=== PATIENT | male | born 1965 | race Caucasian/White ===

== ENCOUNTER 2018-06-13 06:23 | Emergency (ER) | payer BC ==
[2018-06-13] MEDS ORDERED: Labetalol 100 MG/20 ML MDV IVPUSH ONE ×2 (06:36→07:01)
[2018-06-13] MEDS ORDERED: Sodium Chloride 0.9% 10 ML Syringe FLUSH PRN (06:36)
[2018-06-13] MEDS ORDERED: Lisinopril 10 MG Tab PO ONE (07:50)
--- NOTE | 2018-06-13 07:55 | EDM.PDOC ---
ED HPI GENERAL MEDICAL PROBLEM - General Chief Complaint: ENT Problem Stated Complaint: BLOODY NOSE Time Seen by Provider: 06/13/18 06:35 Source of Information: Reports: Patient, RN Notes Reviewed - History of Present Illness INITIAL COMMENTS - FREE TEXT/NARRATIVE: 53 year old male with nose bleed off and on that started yesterday. Started up again this AM, Hx of "borderline Htn", does not take meds for that. No [place], sinsus trouble or other unusual sx. Not on any blood thinners. - Related Data Allergies Allergy/AdvReac Type Severity Reaction Status Date / Time No Known Allergies Allergy Verified 06/13/18 06:28 Home Meds: Home Meds Lisinopril 10 mg PO DAILY #30 tablet 06/13/18 [Rx] Past Medical History - Past Health History Medical/Surgical History: Denies Medical/Surgical History Musculoskeletal History: Reports: Fracture Social & Family History - Tobacco Use Smoking Status *Q: Current Every Day Smoker Years of Tobacco use: 33 Packs/Tins Daily: 1 - Alcohol Use Days Per Week of Alcohol Use: 7 Number of Drinks Per Day: 2 Total Drinks Per Week: 14 - Recreational Drug Use Recreational Drug Use: No ED ROS ENT - Review of Systems Review Of Systems: See Below Constitutional: Denies: Fever, Chills HEENT: Reports: Nosebleed. Denies: Nose Pain, Rhinitis, Sinus Problem, Throat Pain Respiratory: Denies: Shortness of Breath Cardiovascular: Denies: Chest Pain GI/Abdominal: Denies: Nausea, Vomiting Musculoskeletal: Reports: No Symptoms Skin: Reports: No Symptoms Neurological: Reports: No Symptoms ED EXAM, ENT - Physical Exam Exam: See Below General Appearance: Alert, Mild Distress Nose: Dried Blood (L nares, no active bleeding at this time) Mouth/Throat: Normal Inspection (no blood) Head: Atraumatic. No: Facial Ecchymosis, Facial Swelling, Facial Tenderness Neck: Supple, Full Range of Motion Respiratory/Chest: No Respiratory Distress, Lungs Clear, Normal Breath Sounds Cardiovascular: Regular Rate, Rhythm Extremities: Normal Inspection, Normal Range of Motion, No Pedal Edema Neurological: Alert, Oriented, No Motor/Sensory Deficits Skin: Warm, Dry, Normal Color ED ENT PROCEDURES - Epistaxis Procedure Indication: Epistaxis Recent anticoagulants/antiplatlets: No Uncontrolled HTN: Yes Recent septal/nasal surgery: No Site of bleeding: Left Nare, Anterior Topical Meds: Topical Cocaine Chemical cautery: Silver Nitrate Topical Course - Vital Signs Last Recorded V/S: Last Vital Signs Temp 96.8 F 06/13/18 06:28 Pulse 82 06/13/18 08:01 Resp 18 06/13/18 08:01 BP 168/115 H 06/13/18 08:01 Pulse Ox 92 L 06/13/18 08:01 - Orders/Labs/Meds Labs: Laboratory Tests 06/13/18 06/13/18 Range/Units 06:40 06:40 WBC 8.05 (4.23-9.07) K/mm3 RBC 5.90 (4.63-6.08) M/mm3 Hgb 16.5 (13.7-17.5) gm/L Hct 50.3 (40.1-51.0) % MCV 85.3 (79.0-92.2) fl MCH 28.0 (25.7-32.2) pg MCHC 32.8 (32.2-35.5) g/dl RDW Std Deviation 48.4 H (35.1-43.9) fL Plt Count 283 (163-337) K/mm3 MPV 10.0 (9.4-12.3) fl Neut % (Auto) 79.7 H (34.0-67.9) % Lymph % (Auto) 9.6 L (21.8-53.1) % [facility] % (Auto) 7.2 (5.3-12.2) % Eos % (Auto) 2.9 (0.8-7.0) Baso % (Auto) 0.4 (0.1-1.2) % Neut # (Auto) 6.42 H (1.78-5.38) K/mm3 Lymph # (Auto) 0.77 L (1.32-3.57) K/mm3 [facility] # (Auto) 0.58 (0.30-0.82) K/mm3 Eos # (Auto) 0.23 (0.04-0.54) K/mm3 Baso # (Auto) 0.03 (0.01-0.08) K/mm3 Manual Slide Review Normal smear Sodium 141 (136-145) mEq/L Potassium 3.9 (3.5-5.1) mEq/L Chloride 107 (98-107) mEq/L Carbon Dioxide 23 (21-32) mEq/L Anion Gap 14.9 (5-15) BUN 21 H (7-18) mg/dL Creatinine 1.0 (0.7-1.3) mg/dL Est Cr Clr Drug Dosing 90.24 mL/min Estimated GFR (MDRD) > 60 (>60) mL/min BUN/Creatinine Ratio 21.0 H (14-18) Glucose 130 H (74-106) mg/dL Calcium 8.6 (8.5-10.1) mg/dL Total Bilirubin 0.6 (0.2-1.0) mg/dL AST 28 (15-37) U/L ALT 46 (16-63) U/L Alkaline Phosphatase 64 (46-116) U/L Total Protein 7.9 (6.4-8.2) g/dl Albumin 3.7 (3.4-5.0) g/dl Globulin 4.2 gm/dL Albumin/Globulin Ratio 0.9 L (1-2) Meds: Medications Discontinued Medications Generic Name Dose Route Start Last Admin Trade Name Freq PRN Reason Stop Dose Admin Cocaine HCl 4 ml 06/13/18 06:44 06/13/18 07:06 Cocaine Hcl TOP 06/13/18 06:45 4 ml ONETIME ONE Administration Labetalol HCl 20 mg 06/13/18 06:36 06/13/18 06:42 Normodyne IVPUSH 06/13/18 06:37 20 mg ONETIME ONE Administration Protocol Labetalol HCl 20 mg 06/13/18 07:01 06/13/18 07:07 Normodyne IVPUSH 06/13/18 07:02 20 mg ONETIME ONE Administration Protocol Lisinopril 10 mg 06/13/18 07:50 06/13/18 08:01 Prinivil PO 06/13/18 07:51 10 mg ONETIME ONE Administration Sodium Chloride 10 ml 06/13/18 06:36 06/13/18 06:43 Saline Flush FLUSH 10 ml ASDIRECTED PRN Administration Keep Vein Open - Re-Assessments/Exams Free Text/Narrative Re-Assessment/Exam: 06/15/18 07:16 initial BP 206/139. Gave 2 doses of labetalol IV to bring that down. nose cauterized with sliver nitrate, no further bleeding, starting him on lisinopril , discharge instr. as documented. Departure - Departure Time of Disposition: 07:51 Disposition: Home, Self-Care 01 Condition: Fair Clinical Impression: Epistaxis Hypertension Qualifiers: Hypertension type: essential hypertension Qualified Code(s): I10 - Essential ( primary) hypertension - Discharge Information Prescriptions: Lisinopril 10 mg PO DAILY #30 tablet Instructions: Nosebleed, Adult, Hypertension Referrals: PCP,None [Primary Care Provider] - Forms: ED Department Discharge Additional Instructions: Lisinopril 10 mg daily for hypertension, try avoid salty food is best you can, try eat a healthy diet avoiding as much flour and sugar foods as possible, research the Mediterranean diet, that is a diet that includes a lot of fruit, vegetables, nuts, fish that has been shown to reduce risk for heart attack and stroke. Try get some regular exercise at least 3-4 times a week. See one of our medical providers at our [facility] in about 7-10 days for regular complete physical. Call [phone] for appt. try get a blood pressure unit, check your blood pressure twice daily and keep a record, bring that for your appointment. Try not to blow your nose for the next 2 days, Vaseline to the distal nose each side for moisturization twice daily. Pressure if needed for any further bleeding , return to ED as needed.
== END 2018-06-13 08:10 | disposition home or self-care (01) ==
LOC: JD.ED 06:23
DX: R04.0 Epistaxis (principal); I10 Essential (primary) hypertension; F17.210 Nicotine dependence, cigarettes, uncomplicated; Z79.899 Other long term (current) drug therapy
CPT/HCPCS: 30901; 36415; 80053; 85025; 96374; 99283; A9270; J3490

== ENCOUNTER 2018-06-19 07:35 | Emergency (ER) | payer BC ==
--- NOTE | 2018-06-19 07:55 | EDM.PDOC ---
ED HPI GENERAL MEDICAL PROBLEM - General Chief Complaint: ENT Problem Stated Complaint: NOSE BLEED Time Seen by Provider: 06/19/18 07:45 Source of Information: Reports: Patient History Limitations: Reports: No Limitations - History of Present Illness INITIAL COMMENTS - FREE TEXT/NARRATIVE: 53-year-old male presents to the ED with acute onset of a left-sided nasal hemorrhage starting about 0500 hrs. this morning. No nasal trauma. No recent nosebleeds. Been recently diagnosed with significant hypertension and was started on medication last week for blood pressure control I believe lisinopril. BP is quite elevated at the time of exam 200/112. Currently down to 166 116. Blood was running down the back of his throat and swallowed it as well as coming out the right naris. 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 (see below) - Related Data Allergies Allergy/AdvReac Type Severity Reaction Status Date / Time No Known Allergies Allergy Verified 06/19/18 07:47 Home Meds: Home Meds Lisinopril 10 mg PO DAILY #30 tablet 06/13/18 [Rx] Bacitracin/Polymyxin B Sulfate [Polysporin Ointment] 28.3 gm TP ASDIRECTED #1 tube 06/19/18 [Rx] amLODIPine Besylate [Norvasc] 10 mg PO DAILY #30 tablet 06/19/18 [Rx] Past Medical History - Past Health History Medical/Surgical History: Denies Medical/Surgical History Cardiovascular History: Reports: Hypertension (Recently diagnosed with hypertension and started on lisinopril 10 mg once daily last week) Musculoskeletal History: Reports: Fracture Social & Family History - Living Situation & Occupation Living situation: Reports: Single Occupation: Employed ED ROS ENT - Review of Systems Review Of Systems: See Below Constitutional: Denies: Fever, Chills, Malaise, Weakness, Fatigue, Decreased Appetite, Weight Loss HEENT: Reports: Nosebleed (Left nasal hemorrhage this morning.) Respiratory: Reports: No Symptoms Cardiovascular: Reports: Blood Pressure Problem Endocrine: Reports: No Symptoms GI/Abdominal: Reports: No Symptoms, Other (Obese) : Reports: No Symptoms Musculoskeletal: Reports: Back Pain Skin: Reports: No Symptoms Neurological: Reports: No Symptoms Psychiatric: Reports: No Symptoms Hematologic/Lymphatic: Reports: No Symptoms Immunologic: Reports: No Symptoms ED EXAM, ENT - Physical Exam Exam: See Below Exam Limited By: No Limitations General Appearance: Alert, WD/WN, Moderate Distress (Blood pressure is 200/135 initially it did come down to 166/116 fairly shortly after I seen him.) Eye Exam: Bilateral Eye: Normal Inspection Nose: Active Bleeding (His left naris was full of clot and I had him blow his nose. On inspection I could see an arterial bleed actually's shooting blood across the naris from the anterior nasal septum nose clamp was reapplied plan will be to pack the nose with cocaine and Afrin soaked Tubegauz.) Mouth/Throat: Other (Large clot present in the posterior left nasopharynx just behind the soft palate. He was able to cough some of this up.) Head: Atraumatic, Normocephalic Neck: Normal Inspection, Supple, Non-Tender, Full Range of Motion Respiratory/Chest: No Respiratory Distress, Lungs Clear, Normal Breath Sounds, No Accessory Muscle Use, Chest Non-Tender Cardiovascular: Normal Peripheral Pulses, Regular Rate, Rhythm, No Edema, No Murmur, No Rub GI/Abdominal: Normal Bowel Sounds, Soft, Non-Tender, No Organomegaly, No Abnormal Bruit Neurological: Alert, Oriented, CN II-XII Intact, Normal Cognition Psychiatric: Normal Affect, Anxious Skin: Warm, Dry, Intact, Normal Color, No Rash EKG INTERPRETATION Rate (Beats/Min): 96 [place]: Normal Course - Vital Signs Last Recorded V/S: Last Vital Signs Temp 36.3 C 06/19/18 07:45 Pulse 113 H 06/19/18 07:45 Resp 16 06/19/18 07:45 BP 166/116 H 06/19/18 08:04 Pulse Ox 96 06/19/18 07:45 - Orders/Labs/Meds Meds: Medications Discontinued Medications Generic Name Dose Route Start Last Admin Trade Name Freq PRN Reason Stop Dose Admin Amlodipine Besylate 10 mg 06/19/18 07:57 06/19/18 08:04 Norvasc PO 06/19/18 07:58 10 mg ONETIME ONE Administration Cocaine HCl 4 ml 06/19/18 07:57 06/19/18 08:05 Cocaine Hcl TOP 06/19/18 07:58 4 ml ONETIME ONE Administration Oxymetazoline HCl 15 ml 06/19/18 07:58 06/19/18 08:04 Afrin Original 0.05% Nasal [place] SERENE 06/19/18 07:59 15 ml ONETIME ONE Administration - Radiology Interpretation Free Text/Narrative:: 53-year-old male presents to the ED with acute left-sided nasal hemorrhage. Is at 0500 hrs. this morning spontaneously while he was at work. Bleeding from the right naris as well as down his posterior oropharynx. Nasal clamp was brought under control once he got to the ED. Also remove the clamp and had him clear the clot from the left naris I found an active arterial bleed from the mid left anterior nasal septum. This is an aggressive bleed aggravated by his current blood pressure. I will give him Norvasc 10 mg by mouth. I will pack his nose with Afrin and cocaine-soaked Tubegauz. - Re-Assessments/Exams Free Text/Narrative Re-Assessment/Exam: 06/19/18 08:15: Left naris packed with cocaine and Afrin soaked Tubegauze . BP is currently 175 /116. 06/19/18 09:26 left nasal skin tears septum cauterized with silver nitrate. Watched for half an hour and no further bleeding occurred. Patient will be discharged to home. His BP was down to 164/98 at the time of discharge. I'm going to add Norvasc 10 mg once daily to his treatment plan and a prescription was written for 30 tablets. He is to follow-up with his personal care physician in 2 weeks' time for blood pressure review. In the meantime he will pack his nose at bedtime with Polysporin ointment with aid of a Q-tip evident at bedtime for one week and then Wednesdays and Sundays until winter is over. He will return of course to the ED if any further nosebleeds occur. Departure - Departure Time of Disposition: 09:16 Disposition: Home, Self-Care 01 Condition: Fair Clinical Impression: Uncontrolled hypertension, Anterior epistaxis - Discharge Information *PRESCRIPTION DRUG MONITORING PROGRAM REVIEWED*: Not Applicable *COPY OF PRESCRIPTION DRUG MONITORING REPORT IN PATIENT [place]: Not Applicable Prescriptions: amLODIPine Besylate [Norvasc] 10 mg PO DAILY #30 tablet Bacitracin/Polymyxin B Sulfate [Polysporin Ointment] 28.3 gm TP ASDIRECTED #1 tube Instructions: Nosebleed, Adult Referrals: Vladimir Rousseau Jr, MD [Primary Care Provider] - Forms: ED Department Discharge Additional Instructions: Evaluation the emergency room today in regards to sudden onset of an aggressive left-sided nosebleed. When I looked into the nose after the clot was cleared there was a blood vessel that was shooting blood from the left anterior nasal septum. This appears to be aggravated by elevated blood pressure which is not well controlled. You're treated with medication packing in the left nose to bring the blood vessel and bleeding under control. The area was then cauterized using silver nitrate. Blood pressure was controlled with Norvasc 10 mg by mouth which will continue to lower your blood pressure as the day goes on. I would suggest taking this medication once daily in addition to your lisinopril tablet that you're already on for blood pressure control. Follow-up with your personal care doctor in 2 weeks' time for blood pressure review. Try not to blow your nose or pick her nose for the next 2-3 days. As Polysporin ointment placed into the nose every night at bedtime with a Q-tip both sides for the next week and then after this Sunday's and Sunday nights until winter is over in the humidity in her home improves. Most often nosebleeds or caused by dry air especially during the cold months. Of course return to the ED if any further nose bleeding occurs.
[2018-06-19] MEDS ORDERED: amLODIPine 5 MG Tab PO ONE (07:57)
[2018-06-19] MEDS ORDERED: Oxymetazoline 0.05% Nasal Spray 15 ML Bottle NAS ONE (07:58)
== END 2018-06-19 09:32 | disposition home or self-care (01) ==
LOC: JD.ED 07:35
DX: R04.0 Epistaxis (principal); I10 Essential (primary) hypertension; Z79.899 Other long term (current) drug therapy
CPT/HCPCS: 30901; 99283; A9270; 30903